=== PATIENT | male | born 1960 | race Caucasian/White ===

== ENCOUNTER 2020-09-16 05:56 | Day surgery (SDC) | payer OTHER ==
[~2020-09-16] VITALS: Ht 188 cm; Wt 163.0 kg
== END 2020-09-17 10:15 | disposition home or self-care (01) ==
LOC: ORSCMMR 05:56 → SURS 05:56 → ORSCMMR 05:57 → ORD 07:30 → SURS 11:10 → ORSCMMR 09-17 10:15
PROC: 0SRD0J9 Replacement of Left Knee Joint with Synthetic Substitute, Cemented, Open Approach (ICD-10-PCS; principal; 2020-09-16)
PROC: 8E0YXBZ Computer Assisted Procedure of Lower Extremity (ICD-10-PCS; principal; 2020-09-16)
DX: M17.12 Unilateral primary osteoarthritis, left knee (principal); I10 Essential (primary) hypertension; I48.91 Unspecified atrial fibrillation; Z87.891 Personal history of nicotine dependence; N18.9 Chronic kidney disease, unspecified; K21.9 Gastro-esophageal reflux disease without esophagitis; E66.01 Morbid (severe) obesity due to excess calories; Z68.42 Body mass index [BMI] 45.0-49.9, adult; Z79.82 Long term (current) use of aspirin
CPT/HCPCS: 36415; 73560-LT; 80048; 82947; 83036; 83735; 85025; 97110; 97110-CQ; 97116; 97116-CQ; 97162; 97530; 97530-CQ; A9270; C1713; C1776; J0171; J0690; J0735; J1100; J1170; J1650; J1885; J2250; J2370; J2405; J2704; J2795; J3010; J7120

== ENCOUNTER 2022-06-19 07:53 | Inpatient (IN) | payer OTHER ==
[~2022-06-19] VITALS: Ht 188 cm; Wt 139.0 kg
[~2022-06-19 07:53] MED LIST: ASPI325 PO; ASPIR 8181 M1 PO; CYCL10 PO; ENOX40I SC; HYDACE10B PO; IBUP800 PO; LOSA50 PO; NAPR500 PO; POTCHL20ER PO; PROMETHAZINE12.5 M1 PO; ROXICODONE5 MG PO; Robaxin500 MG PO; TADA10TA PO; TORSE20 PO; Ultram50 MG PO
[2022-06-19 08:26] LABS: BASOPHILS ABSOLUTE AUTO 0.04 K/mm3 (0.00-0.23); BASOPHILS PERCENT AUTO 1 % (0-2); EOSINOPHILS ABSOLUTE AUTO 0.06 K/mm3 (0.00-0.68); EOSINOPHILS PERCENT AUTO 1 % (0-6); Hematocrit 48.6 % (37.0-53.0); Hemoglobin 16.6 g/dL (13.5-17.5); IMMATURE GRAN ABSOLUTE AUTO 0.02 K/mm3 (0.00-0.10); IMMATURE GRAN PERCENT AUTO 0 % (0-1); LYMPHOCYTES ABSOLUTE AUTO 0.92 K/mm3 (0.84-5.20); LYMPHOCYTES PERCENT AUTO 11 % (21-46); MONOCYTES ABSOLUTE AUTO 0.61 K/mm3 (0.16-1.47); MONOCYTES PERCENT AUTO 8 % (4-13); Mean Corpuscular HGB Conc 34.2 g/dL (31.5-36.5); Mean Corpuscular Volume 91 fL (80-100); Mean Platelet Volume 9.7 fL (9.1-12.4); NEUTROPHILS ABSOLUTE AUTO 6.42 K/mm3 (1.96-9.15); NEUTROPHILS PERCENT AUTO 80 % (41-73); Platelet Count 195 K/mm3 (150-400); RDW Standard Deviation 43.7 fL (35.1-46.3); Red Blood Cell Count 5.36 M/mm3 (4.30-5.90); White Blood Cell Count 8.07 K/mm3 (4.00-11.30)
[2022-06-19 08:48] LABS: Albumin, Blood 3.8 g/dL (3.4-5.0); Bun/Creatinine Ratio 25.2 (12.0-20.0); Calcium, Blood 9.1 mg/dL (8.5-10.1); Creatinine, Blood 1.43 mg/dL (0.60-1.20); Globulin, Blood 3.9 g/dL (2.2-4.0); Potassium, Blood 3.6 mmol/L (3.5-5.5); Total Protein, Blood 7.7 g/dL (6.4-8.2)
[2022-06-19 11:41] LABS: Influenza A, PCR NEGATIVE (NEGATIVE); Influenza B, PCR NEGATIVE (NEGATIVE); Resp Syncytial Virus, PCR NEGATIVE (NEGATIVE); SARS-Cov-2 (COVID-19) PCR, MMC NEGATIVE (NEGATIVE)
[2022-06-19 12:16] LABS: Anti-Xa UFH, PHA Monitoring <0.10 IU/mL; International Normalized Ratio 1.14; Prothrombin Time Results 11.9 Sec (9.7-11.5)
[2022-06-19 13:17] LABS: CHOL/HDL RATIO 4.2; Cholesterol 247 mg/dL (50-200); HDL Cholesterol 59 mg/dL (>39); LDL/HDL RATIO 2.9; Low Density Lipoprotein Chol 172 mg/dL (0-110); Triglycerides 81 mg/dL (30-160); Very Low Density Lipoprot Chol 16 mg/dL (6-32)
--- NOTE | 2022-06-19 18:24 | NUR ---
END OF SHIFT: NO CHANGE FROM ADMISSION ASSESSMENT PLEASE SEE.
--- NOTE | 2022-06-19 21:20 | NUR ---
UPDATE PER PHARMACY, HEPARIN GTT STOPPED AT 2120, WILL RESUME IN 1 HOUR AT ADJUSTED RATE.
--- NOTE | 2022-06-19 22:28 | NUR ---
HEPARIN GTT HEPARIN RESUMED AT 2220 AT 15U/KG/HR OR PUMP RATE OF 31.5 ML/HR
[2022-06-20 05:14] LABS: BASOPHILS ABSOLUTE AUTO 0.02 K/mm3 (0.00-0.23); BASOPHILS PERCENT AUTO 0 % (0-2); EOSINOPHILS PERCENT AUTO 0 % (0-6); Hematocrit 48.6 % (37.0-53.0); Hemoglobin 16.2 g/dL (13.5-17.5); IMMATURE GRAN ABSOLUTE AUTO 0.03 K/mm3 (0.00-0.10); IMMATURE GRAN PERCENT AUTO 0 % (0-1); LYMPHOCYTES ABSOLUTE AUTO 0.89 K/mm3 (0.84-5.20); LYMPHOCYTES PERCENT AUTO 10 % (21-46); MONOCYTES ABSOLUTE AUTO 0.84 K/mm3 (0.16-1.47); MONOCYTES PERCENT AUTO 9 % (4-13); Mean Corpuscular HGB 30.8 pg (26.0-34.0); Mean Corpuscular HGB Conc 33.3 g/dL (31.5-36.5); Mean Corpuscular Volume 92 fL (80-100); Mean Platelet Volume 10.1 fL (9.1-12.4); NEUTROPHILS ABSOLUTE AUTO 7.14 K/mm3 (1.96-9.15); NEUTROPHILS PERCENT AUTO 80 % (41-73); Platelet Count 194 K/mm3 (150-400); RDW Coefficient Variation 13.2 % (11.7-14.2); RDW Standard Deviation 45.2 fL (35.1-46.3); Red Blood Cell Count 5.26 M/mm3 (4.30-5.90); White Blood Cell Count 8.92 K/mm3 (4.00-11.30)
--- NOTE | 2022-06-20 05:48 | NUR ---
SHIFT SUMMARY A/OX4, L. SIDED DEFECITS. SLURRED SPEECH WITH DYSPAGHIA, L. FACICAL DROOP. C/O GENERALIZED PAIN, MEDICATED PER EMAR. TELE SR 60S-80S. DENIES CHEST PAIN/PRESSURE. APNEIC PERIODS NOTED, SPO2 >92% ON 2L VIA NC. HEPARIN GTT CURRENTLY RUNNING AT 14U/KG/HR. SIGNIFICANT OTHER AT BEDSIDE. NO ACUTE CHANGES AT THIS TIME. BED IN LOWEST POSITION WITH CALL LIGHT IN REACH. WILL CONTINUE TO MONITOR AND REPORT TO ONCOMING RN.
[2022-06-20 07:11] LABS: Bun/Creatinine Ratio 31.8 (12.0-20.0); Creatinine, Blood 1.1 mg/dL (0.60-1.20); Potassium, Blood 4.2 mmol/L (3.5-5.5)
--- NOTE | 2022-06-20 17:48 | NUR ---
SHIFT SUMMARY PT A&OX4. MILD LEFT SIDE DEFICITS NOTED BLE. SP02>90% ON RA WHILE AWAKE. WHILE SLEEPING OR LAYING BACK, 2-3L NC NEEDED TO MAINTAIN >90%. USED URINAL TO VOID. SPEECH THERAPY ASSESSING PT THIS SHIFT, CLEARED FOR REGULAR DIET. PT C/O OF L ARM PAIN. CALL PLACED TO MD MARROQUIN FOR ORDER OF HOME NORCO, DC'D IV PAIN MEDICATION. MEDICATED FOR PAIN X1. ECHO IN ROOM THIS AM, SEE RESULTS. PT TO MRI THIS SHIFT, MD MARROQUIN IN ROOM TO DISCUSS RESULTS WITH PT AND PT'S FAMILY. PT ABLE TO WORK W/ PT/OT THIS SHIFT, 2 PERSON W/ [facility]WW TO [facility] HEPARIN GTT INFUSING PER EMAR. PT SITTING ON SIDE OF BED CURRENTLY W/ FAMILY IN ROOM. CALL LIGHT IN REACH.
--- NOTE | 2022-06-21 05:32 | NUR ---
SHIFT SUMMARY A/OX4, 2P MAX ASSIST FOR TRANSFERS. C/O GENERALIZED PAIN, MEDICATED PER EMAR. TELE SR IN THE 80S. VSS, NO ACUTE CHANGES AT THIS TIME. BED IN LOWEST POSITION WITH CALL LIGHT IN REACH. WILL CONTINUE TO MONITOR AND REPORT TO ONCOMING RN.
--- NOTE | 2022-06-21 07:22 | NUR ---
ASSUMED CARE OF PT- BEDSIDE REPORT COMPLETED WITH NIGHT RN, NO S&S OF DISTRESS NOTED, TANGLED LINES AND TUBES UNTANGLED. ASSESSMENT COMPLETED. PT WOKE TO VOICES AND ANSWERED QUESTIONS, THOUGH GROGGY, PT WAS ABLE TO FOLLOW INSTRUCTIONS, GRAINER MACHINE EQUAL, LEFT LEG SEEMS WEAK. ON TELE NSR IN THE 60'S. FAMILY AT THE BEDSIDE, PLAN FOR HH DISCHARGE, FAMILY HAS QUESTIONS ABOUT THE DISCHARGE PLAN WHEN THE DR ROUNDS.
--- NOTE | 2022-06-21 09:17 | NUR ---
NOTED PT HR TRENDING LOWER THAN PREVIOUS. SPOKE TO CLINICAL ADMISSIONS MANAGER HR TRENDING 50'S TO HIGH 40'S. PER CLINICAL ADMISSIONS MANAGER PT HAS A FIRST DEGREE AV BLOCK THAT STARTED EARLY THIS AM. WILL CALL DR MARROQUIN TO UPDATE.
--- NOTE | 2022-06-21 09:21 | NUR ---
CALLED DR MARROQUIN- PT ASYMPTOMATIC WITH THE [facility]. AWARE NO NEW ORDERS AT THIS TIME.
--- NOTE | 2022-06-21 09:52 | NUR ---
DR MARROQUIN AT THE BEDSIDE- SPOKE TO PT ABOUT READINESS TO DISCHARGE. PT STATES HE IS NOT YET READY TO DISCHARGE. WHEN ASKED WHY THE PT STATED BECAUSE HE IS "INSIDE HIS OWN HEAD AND IT IS F*&@#D UP IN HERE." PT C/O DIZZINESS AND DR MARROQUIN GAVE A VERBAL ORDER FOR MECLIZINE ONE TIME PO.
--- NOTE | 2022-06-21 17:16 | NUR ---
SHIFT SUMMARY- PT ALERT AND ORIENTED, 1P SBA TO THE BATHROOM. FAMILY HAS BEEN AT THE BEDSIDE SINCE THE START OF THE SHIFT. PT IS AGREEABLE WITH CARE. PLAN WAS FOR PT TO DISCHARGE HOME WITH HOME HEALTH. PT FAMILY CONVEYED THAT THEY WERE NOT COMFORTABLE TAKING THE PT HOME TONIGHT. THE PT AND FAMILY PLAN TO LEAVE TOMORROW MORNING FROM THE HOSPITAL TO GO TO [facility] IN [place] FOR A SECOND OPINION. WROTE DISCHARGE ORDERS FOR TONIGHT, PLAN WAS FOR TOMORROW MORNING, PER THE FAMILY REQUEST THE DR WAS CALLED TO GET DISCHARGE MEDS FAXED TO THE PT PHARMACY. ACADEMIC ADVISER ATTEMPTING TO REACH CARE MANAGEMENT AT THIS TIME. WILL CTM AT THIS TIME.
--- NOTE | 2022-06-21 18:08 | NUR ---
Pt and family fearful because of continued symptoms and prognosis. Lack understanding of needed interventions. Review with family pt need to be on blood thinners and review of diagnositics. Family fears taking him home. Some potential concerns of possible substance abuse. Ricky notified family would like to fill his new script tonight. After discussion they plan to take him tomorrow to [facility] for further care. updated shareg nurse of their concerns and physician. Plan is am discharge.
[2022-06-21] MEDS ORDERED: ASPI81CH PO (18:16)
[2022-06-21] MEDS ORDERED: METF500C PO (18:17)
[2022-06-21] MEDS ORDERED: ATOR80 PO (18:17)
[2022-06-21] MEDS ORDERED: MOTION RELIEF25 MG PO (18:18)
[2022-06-21] MEDS ORDERED: LISI5 PO (18:18)
[2022-06-21] MEDS ORDERED: XARELTO20 MG PO (18:19)
--- NOTE | 2022-06-21 19:05 | NUR ---
DISCHARGE NOTE- PT AND FAMILY WERE GIVEN VERBAL AND WRITTEN DISCHARGE INSTRUCTIONS AND ACKNOWLEDGED UNDERSTANDING OF THEM. IV AND TELE DC'D. PT PHARMACY HAD CLOSED AT THE TIME OF DISCHARGE SO MEDS W[facility] TO [facility] [place] PER FAMILY REQUEST. SPOKE TO STAFF AT THE PHARMACY THEY HAVE ALL THE MEDS THE PT NEEDS FILLED AND WILL FILL THEM THIS EVENING PRIOR TO CLOSE. FAMILY IS AWARE OF THE CLOSING TIME FOR THIS PHARMACY. PT IS GOING TO BE ESCORTED OUT VIA WC. NO CURRENT S&S OF DISTRESS.
== END 2022-06-21 19:10 | disposition home or self-care (01) | DRG 65 ==
LOC: ER 07:53 → PCU 12:50
PROVIDERS: Emergency Medicine; ADMIT Internal Medicine
DX: I63.9 Cerebral infarction, unspecified (principal); G81.94 Hemiplegia, unspecified affecting left nondominant side; Z68.41 Body mass index [BMI] 40.0-44.9, adult; R29.702 NIHSS score 2; I10 Essential (primary) hypertension; Z20.822 Contact with and (suspected) exposure to COVID-19; I48.91 Unspecified atrial fibrillation; E11.9 Type 2 diabetes mellitus without complications; R29.810 Facial weakness; R47.81 Slurred speech; M19.90 Unspecified osteoarthritis, unspecified site; E66.01 Morbid (severe) obesity due to excess calories; R09.02 Hypoxemia; I65.22 Occlusion and stenosis of left carotid artery; Z96.652 Presence of left artificial knee joint; Z87.891 Personal history of nicotine dependence; Z98.890 Other specified postprocedural states; Z72.89 Other problems related to lifestyle; Z28.21 Immunization not carried out because of patient refusal; Z79.82 Long term (current) use of aspirin; Z79.899 Other long term (current) drug therapy
CPT/HCPCS: 0241U; 36415; 70450; 70496; 70498; 70551; 71045; 80048; 80053; 80061; 82947; 85025; 85520; 85610; 85730; 92610; 93005; 93010; 93306; 96365-59; 96375-59; 96376-59; 97110; 97112; 97116; 97162; 97166; 97535; 99285-25; A9270; J1644; J2270; J2405; J7030; Q9967

== ENCOUNTER 2022-06-25 23:31 | Inpatient (IN) | payer OTHER ==
[~2022-06-25] VITALS: Ht 188 cm; Wt 149.2 kg
[~2022-06-25 23:31] MED LIST changes: +ASPI81CH PO; +ATOR80 PO; +LISI5 PO; +METF500C PO; +MOTION RELIEF25 MG PO; +XARELTO20 MG PO
[2022-06-25 23:46] LABS: BASOPHILS ABSOLUTE AUTO 0.07 K/mm3 (0.00-0.23); BASOPHILS PERCENT AUTO 1 % (0-2); EOSINOPHILS ABSOLUTE AUTO 0.62 K/mm3 (0.00-0.68); EOSINOPHILS PERCENT AUTO 6 % (0-6); Hematocrit 47.9 % (37.0-53.0); Hemoglobin 16.3 g/dL (13.5-17.5); IMMATURE GRAN ABSOLUTE AUTO 0.04 K/mm3 (0.00-0.10); IMMATURE GRAN PERCENT AUTO 0 % (0-1); LYMPHOCYTES ABSOLUTE AUTO 3.51 K/mm3 (0.84-5.20); LYMPHOCYTES PERCENT AUTO 36 % (21-46); MONOCYTES ABSOLUTE AUTO 1.35 K/mm3 (0.16-1.47); MONOCYTES PERCENT AUTO 14 % (4-13); Mean Corpuscular HGB 30.8 pg (26.0-34.0); Mean Corpuscular Volume 90 fL (80-100); Mean Platelet Volume 9.8 fL (9.1-12.4); NEUTROPHILS ABSOLUTE AUTO 4.08 K/mm3 (1.96-9.15); NEUTROPHILS PERCENT AUTO 42 % (41-73); Platelet Count 236 K/mm3 (150-400); RDW Coefficient Variation 12.8 % (11.7-14.2); RDW Standard Deviation 42.4 fL (35.1-46.3); White Blood Cell Count 9.67 K/mm3 (4.00-11.30)
[2022-06-26] MEDS ORDERED: Hydroxyzine HCl50 MG (00:03)
[2022-06-26] MEDS ORDERED: POTA20PAC (00:03)
[2022-06-26] MEDS ORDERED: TORSE20 PO (00:03)
[2022-06-26 00:04] LABS: Albumin, Blood 3.5 g/dL (3.4-5.0); Albumin/Globulin Ratio 0.9 (0.8-1.8); Bilirubin, Total 0.3 mg/dL (0.1-1.0); Bun/Creatinine Ratio 22.3 (12.0-20.0); Calcium, Blood 9.4 mg/dL (8.5-10.1); Creatinine, Blood 1.21 mg/dL (0.60-1.20); Globulin, Blood 4.1 g/dL (2.2-4.0); Potassium, Blood 3.9 mmol/L (3.5-5.5); Total Protein, Blood 7.6 g/dL (6.4-8.2)
[2022-06-26] MEDS ORDERED: XARELTO20 MG PO (00:04)
[2022-06-26 02:28] LABS: Magnesium, Blood 2.1 mg/dL (1.6-2.4); Phosphorus, Blood 3.6 mg/dL (2.5-4.9); Thyroid Stimulating Hormone 3.25 uIU/mL (0.360-4.800)
[2022-06-26 04:45] LABS: BASOPHILS ABSOLUTE AUTO 0.05 K/mm3 (0.00-0.23); BASOPHILS PERCENT AUTO 1 % (0-2); EOSINOPHILS ABSOLUTE AUTO 0.05 K/mm3 (0.00-0.68); EOSINOPHILS PERCENT AUTO 1 % (0-6); Hematocrit 46.3 % (37.0-53.0); Hemoglobin 15.7 g/dL (13.5-17.5); IMMATURE GRAN ABSOLUTE AUTO 0.02 K/mm3 (0.00-0.10); IMMATURE GRAN PERCENT AUTO 0 % (0-1); LYMPHOCYTES ABSOLUTE AUTO 0.85 K/mm3 (0.84-5.20); LYMPHOCYTES PERCENT AUTO 11 % (21-46); MONOCYTES ABSOLUTE AUTO 0.43 K/mm3 (0.16-1.47); MONOCYTES PERCENT AUTO 5 % (4-13); Mean Corpuscular HGB 30.8 pg (26.0-34.0); Mean Corpuscular HGB Conc 33.9 g/dL (31.5-36.5); Mean Corpuscular Volume 91 fL (80-100); Mean Platelet Volume 10.3 fL (9.1-12.4); NEUTROPHILS ABSOLUTE AUTO 6.65 K/mm3 (1.96-9.15); NEUTROPHILS PERCENT AUTO 83 % (41-73); Platelet Count 220 K/mm3 (150-400); RDW Coefficient Variation 12.8 % (11.7-14.2); RDW Standard Deviation 42.5 fL (35.1-46.3); Red Blood Cell Count 5.09 M/mm3 (4.30-5.90); White Blood Cell Count 8.05 K/mm3 (4.00-11.30)
--- NOTE | 2022-06-26 04:57 | NUR ---
ADMISSION/SHIFT SUMMARY PT ARRIVED TO PCU 17 AT 0330. SLID OVER [facility]. PT ALERT AND ORIENTED X4 ON ARRIVAL, ABLE TO TELL THIS RN NAME, , LOCATION, AND WHY ADMISSION WAS WARRANTED. L SIDED DEFECIT NOTED, SPOUSE AT BEDSIDE TOLD THIS RN PT LOST FULL MOVEMENT ON L. SIDE EXTREMENTIES APPROX 2300 06/25/22 AND SLOWLY HAS REGAINED IT BACK. NO FACIAL DROOPED OBSERVED. SMILE EQUAL BILATERALLY. PEERLA. PT COMPLAINING OF 10/10 HEADACHE IN ER, MEDICATED PER EMAR BEFORE ARRIVAL TO UNIT. BP STABLE, HR SR 60'S, AFEBRILE, CURRENTLY ON RA SATURATIONS >96%. RESPIRATIONS EVEN AND UNLABORED AT REST. PT WEARS CPAP AT [facility], RT MADE AWARE. PULSES EQUAL BILATERALLY, +1 EDEMA NOTED IN BLE. PT AND SPOUSE STATES THIS IS AN IMPROVEMENT SINCE YESTERDAY. CONT OF BOTH URINE AND BOWEL, PT IRRIATED ON WHY AMBULATION WAS NOT APPROPRIATE AT THIS TIME, EDUCATION PROVIDED AND SAFETY MEASURES IN PLACE. SPOUSE AND DAUGHTER AT BEDSIDE, MADE AWARE OF VISITING HOURS STARTING THIS EVENING. PLAN FOR MRI IN AM. BED IN LOW, CALL LIGHT IN REACH, WILL REPORT TO ONCOMING RN.
[2022-06-26 05:09] LABS: Albumin, Blood 3.2 g/dL (3.4-5.0); Albumin/Globulin Ratio 0.8 (0.8-1.8); Bilirubin, Total 0.4 mg/dL (0.1-1.0); Calcium, Blood 8.7 mg/dL (8.5-10.1); Creatinine, Blood 1.04 mg/dL (0.60-1.20); Globulin, Blood 3.8 g/dL (2.2-4.0); Potassium, Blood 4.5 mmol/L (3.5-5.5)
[2022-06-26] MEDS ORDERED: Norco 10-325 T1 EACH PO (10:59)
--- NOTE | 2022-06-26 17:16 | NUR ---
SHIFT SUMMARY PT REMAINS ALERT AND ORIENTED, BUT CONFUSED UPON WAKING AT TIMES. PT LETHARGIC MOST OF SHIFT, BUT AWAKENS TO VERBAL STIMULI. HR SB IN THE 50'S. BP ELEVATED, BUT STABLE. PT COMPLAINS OF HEADACHE AND BACK PAIN ON AND OFF THIS SHIFT AND MEDICATED PER EMAR. PT MOVING HIMSELF AROUND IN THE BED FREQUENTLY. LEFT SIDE IS WEAKER THAN RIGHT, BUT PT ABLE TO FOLLOW COMMANDS WITH LEFT SIDE. PT VOIDING USING THE URINAL AT BEDSIDE. MULTIPLE FAMILY MEMBERS AT BEDSIDE ALL SHIFT. WILL CONTINUE TO MONITOR AND REPORT TO ONCOMING RN
--- NOTE | 2022-06-26 20:14 | NUR ---
UPDATE TO HOSPITALIST THIS RN SPEAKS TO HOSPITALIST AKASH ESTRADA TIBCO DEVELOPER AT NURSE'S STATION REGARDING PT TX PLAN FOR JULIA IN AM AND CONCERNS FOR BP AND PAIN. ORDERS GIVEN FOR BP AND PAIN PRN. NIHSS SCORE BY THIS RN CURRENTLY 9 D/T FOLLOWING SCORED BY THIS RN: 1a: +1 1B: 0 1c: 0 2: 0 3: +1 (INCORRECTLY STATES NUMBER OF FINGERS HELD UP TO L EYE) 4: 0 5A: +2 5b: 0 6A: +1 6B: 0 7: 0 8: +1 9: +1 10: +1 11: +1 TOTAL NIHSS: 9 BY THIS RN AT THIS TIME. PT IS ALSO C/O SEVERE HEADACHE, EYES SENSITIVE TO LIGHT, APPEARS DROWSY BUT ARROUSES TO QUESTIONS EASILY. PT STATES YEAR IS 2003 AND DOES NOT KNOW WHO THE PRESIDENT IS. KNOWS HIS NAME, AGE. PT'S SIGNIFICANT OTHER RYANNE AT BEDSIDE WITH PT'S DAUGHTER TABBY AND SON JULIANA.
--- NOTE | 2022-06-27 01:31 | NUR ---
UPDATE PT BEGAN VOMITTING, ORDERS FROM PHYSICIAN FOR ZOFRAN Q4 NEEDED.
[2022-06-27 06:47] LABS: Albumin, Blood 3.3 g/dL (3.4-5.0); Anion Gap 6 mmol/L (6-16); Blood Urea Nitrogen 19 mg/dL (8-24); Bun/Creatinine Ratio 22.1 (12.0-20.0); CO2, Blood 25 mmol/L (21-32); Calcium, Blood 9.2 mg/dL (8.5-10.1); Chloride, Blood 105 mmol/L (98-108); Creatinine, Blood 0.86 mg/dL (0.60-1.20); Glomerular Filtration Rate 97 (60-); Glucose, Blood 122 mg/dL (70-99); Phosphorus, Blood 3.5 mg/dL (2.5-4.9); Potassium, Blood 4.3 mmol/L (3.5-5.5); Sodium, Blood 136 mmol/L (136-145)
--- NOTE | 2022-06-27 07:30 | NUR ---
ASSUMED CARE: PT RESTING ON RIGHT SIDE AT THIS TIME. FAMILY AT BEDSIDE. NSR WITH A BBB ON TELE IN THE 60S. NIGHT RN REPORTS LEFT SIDED WEAKNESS. NO ACUTE NEEDS OR DISTRESS AT THIS TIME.
--- NOTE | 2022-06-27 07:37 | NUR ---
SHIFT SUMMARY PT AOX3 AT START OF SHIFT, LETHARGIC AND FREQUENTLY DROWSY BUT C/O SEVERE HEADACHE WHICH IMPROVED FOLLOWING IV MORPHINE AND NORCO PO. PT SATS DROPPED FOLLOWING IV MORPHINE, PT TRIED CPAP AND THEN REFUSED SHORTLY AFTER. NO FURTHER ISSUES WITH O2 SATS. PT FREQUENTLY REPOSITIONED SELF IN BED. S/O ASSISTED TO USE URINAL IN BED. NEUR0 CHANGE NOTED EARLY THIS AM WHEN PT WAS CONFUSED REGARDING HIS AGE AND INCREASINGLY AGITATED. EPISODE FOLLOWED EPISODE OF EMESIS THAT OCCURRED W/O WARNING WHEN THIS RN WAS ASSISTING PT TO URINATE. PT MEDICATED WITH ZOFRAN ON OVERRIDE, DR RODRIGUEZ NOTIFIED AND ORDERS PLACED FOR NAUSEA MED PRN. PT DENIED ANY CP T/O SHIFT, MOVED ALL FOUR EXTREMITIES, SIGNIFICANT WEAKNESS IN L ARM W/PRESENT DRIFT, WHEN ASKED TO SQUEEZE THIS RN'S HAND THIS AM W/AGITATION PT SQUEEZED TIGHT AND WOULD NOT LET GO UNTIL THIS RN TOLD HIM SEVERAL TIMES THAT HE WAS SQUEEZING TOO HARD. PT HAD BEEN AGITATED W/STAFF AND USING PROFANITIES. PT CALMED AFTER BEING LEFT TO REST AND SLEEP. PT DROWSY AND DID NOT AWAKEN MUCH WITH BLOOD DRAW THIS AM, STILL AWAKENING TO ANSWER QUESTIONS, FOLLOWS COMMANDS. IV'S SALINE LOCKED. CONCERN FOR NEED FOR POWERGLIDE INSERTION PASSED ON IN REPORT TO ONCOMING RN D/T DIFFICULTY W/BLOOD DRAW THIS AM.
--- NOTE | 2022-06-27 08:14 | NUR ---
DR SU CAME TO BEDSIDE AND CONSENTED PT FOR JULIA. STATED ANESTHESIA WILL BE NEEDED SO PT WILL BE TAKEN TO WAREHOUSEMAN FOR PROCEDURE. FAMILY AT BEDSIDE AND AWARE
--- NOTE | 2022-06-27 08:42 | NUR ---
THIS MIXING PLANT DUMPER CAME ON SHIFT AT 0700 UNDER THE SUPERVISION OF NURSE NESS. REPORT OBTAINED FROM PM SHIFT. ORACLE SQL DEVELOPER AT BEDSIDE AROUND 0800 TO EXPLAIN JULIA PROCEDURE TO PT AND S/O. PT VERBALIZED UNDERSTANDING AND CONSENT. S/O SIGNED CONSENT FORM, NURSE NESS OBSERVED, ORACLE SQL DEVELOPER SIGNED CONSENT FORM. PT TOLERATED PHYSICAL ASSESSMENT. NOTED DEFICITS TO LEFT SIDE INCLUDING FACIAL DROOP AND DEFICITS IN UPPER AND LOWER LEFT LIMBS. PT DENIED PRESENCE OF PAIN AT 0820. PT WAITING FOR TRANFER TO [facility] FOR JULIA.
--- NOTE | 2022-06-27 09:21 | NUR ---
THIS STUDENT NURSE ADMINISTERED XARELTO AND LISINOPRIL TO PT PO AT 0915 UNDER THE SUPERVISION OF NURSE NESS, PT TOLERATED INTERVENTION. PT COMLAINS OF 10/10 HEADACHE PAIN, RECEIVED 4MG OF MORPHINE IV BY NURSE NESS. R FOREARM IV REMOVED BY THIS STUDENT NURSE UNDER THE SUPERVISION OF NURSE NESS. COBAN AND GAUZE APPLIED OVER SITE, PT TOLERATED INTERVENTION WELL.
--- NOTE | 2022-06-27 14:19 | NUR ---
[facility] STAFF CALLS AND REPORTS THAT JULIA TO BE DONE AT BEDSIDE WITH ANESTHESIA ASSISTING AT 3PM. FAMILY AWARE. NO FURTHER NEEDS AT THIS TIME.
--- NOTE | 2022-06-27 15:54 | NUR ---
JULIA COMPLETED BY DR SU WITH ANESTHESIA ASSISTING. DR SU REPORTS NO BLOOD CLOT FOUND DURING EXAM. CALL TO DR MONROE TO UPDATE AND ASKED IF CAROTID DOPPLER MAY BE NEEDED. STATES SHE IS REVIEWING HIS CHART AND WILL CALL NEUROLOGY FOR FURTHER RECOMMENDATIONS.
--- NOTE | 2022-06-27 17:07 | NUR ---
THIS STUDENT NURSE OBSERVED DR SU PERFORM THE JULIA WITH THE HELP OF CAMILO. NO ABNORMALITIES REPORTED, PT TOLERATED PROCEDURE WELL. PT FAMILY BACK AT BEDSIDE, PT RESTING COMFORTABLY. PT IS AROUSABLE WITH VERBAL STIMULATION.
--- NOTE | 2022-06-27 18:05 | NUR ---
SHIFT SUMMARY: DR MONROE CAME TO BEDSIDE AND EXPLAINED NEURO RECOMMENDATIONS TO PATIENT AND FAMILY. PLAN IS TO START HEPARIN TOMORROW AM DUE TO XARELTO BEING ADMINISTERED THIS AM. NEURO STATED THAT CAROTID DOPPLERS NOT NEEDED BECAUSE TREATMENT WOULD BE THE SAME. DR AWARE THAT PT HAS HAD HEADACHES SINCE YESTERDAY. DR ORDERED CT TO R/O BLEED. DR ALSO AWARE THAT THERE HAVE BEEN NEURO CHANGES THIS SHIFT. PT LETHARGIC AT TIMES BUT ROUSEABLE AND WAKES TO ANSWER QUESTIONS. DR INSTRUCTS TO HOLD FOOD UNTIL SPEECH CAN EVALUATE. MEDS WITH SIPS IS OK. FAMILY AT BEDSIDE. NO FURTHER NEEDS AT THIS TIME.
[2022-06-27 18:45] LABS: International Normalized Ratio 1.17; Prothrombin Time Results 12.2 Sec (9.7-11.5)
--- NOTE | 2022-06-27 20:21 | NUR ---
PT UPDATE THIS RN TAKES PT TO CT SHORTLY AFTER SHIFT CHANGE AROUND 1939. ON COMPLETION OF CT SCAN HOB ADJUSTED TO 30 DEGREES. THIS RN NOTIFIES RESIDENT DR DEAN OF NEED TO VIEW IMAGES, CONTACTED LOUNGE CAR ATTENDANT TO CONFIRM RADIOLOGIST READING REPORT BEFORE CUT-OFF. THIS RN RECEIVES CALL FROM DR ROLLE, NOTIFIES OF CHANGES AND REPORTS AT [facility] AT [facility] AND [facility]POR[facility] THERE IS A NEW BLEED. NOTES HERNIATION AT [facility]. RECCOMENDS TRANSFER FOR FINDINGS. THIS RN NOTIFIES RESIDENT DR DEAN WHO IS ON THE UNIT. NO SIGNIFICANT NEURO CHANGES NOTED AT THIS TIME OTHER THAN CONTINUED SOMNOLENCE, PT DENIES HEADACHE AT THIS TIME. L SIDE FRIFT IN L ARM. NIHSS IS FOLLOWS. NIHSS SCORE BY THIS RN: 1A: +2 1B: +1 1C: 0 2: 0 3: 0 4: 0 5A: 2 5B: 0 6A: 1 6B: 0 7: 0 8: 1 9: 1 10: 1 11: 1 NIHSS SCORE BY THIS RN 10
[2022-06-27 22:47] LABS: Bun/Creatinine Ratio 19.5 (12.0-20.0); Calcium, Blood 9.1 mg/dL (8.5-10.1); Creatinine, Blood 0.92 mg/dL (0.60-1.20); Potassium, Blood 4.2 mmol/L (3.5-5.5)
--- NOTE | 2022-06-27 23:15 | NUR ---
REPORT TO MADDY MORIN AT [facility] NEURO UNIT.
--- NOTE | 2022-06-28 00:50 | NUR ---
SUMMARY PT SOMNOLENT AT START OF SHIFT, AWAKENS TO ANSWER QUESTIONS WHEN NAME IS SPOKEN REPEATEDLY AND GENTLE TOUCH TO SHOULDER OR CHEST. S/O AT BEDSIDE. PT TAKEN TO CT SHORTLY AFTER SHIFT CHANGE. HOB KEPT AT [address] SCAN[address] RADIOLOGIST CALLED TO NOTIFY OF CONCERNING NEW FINDINGS (SEE NOTE). S/O CALLS CHILDREN OF PT TO BEDSIDE. FAMILY NOTIFIED BY PROVIDER OF FINDINGS AND PLAN FOR TRANSFER. PARAMETERS GIVEN TO KEEP BP LOWER THAN 140/90. DIFFICULTY WITH LABILE BP NOT RESPONDING FOR LONG TO HYDRALAZINE PUSHES. PAIN MEDICINES GIVEN TO HELP WITH INCREASINGLY SEVERE HEADACHE WHICH WAS SUSPECT FOR RAISING PT'S BP. THIS RN NOTED A CHANGE OF 1 POINT ON NIHSS FROM PRIOR SHIFT. PT CONTINUED TO HAVE L SIDE DEFICITS W/NO OBVIOUS WORSENING FROM PRIOR. PT CONTINUED TO BE SOMNOLENT BUT RESPONSIVE. [facility] ADMINISTRATION DELAYED BY BLOOD BANK D/T CONCERNS REGARDING HOW TO DOCUMENT THE ADMINISTRATION D/T INFUSING ON TRANSFER. [facility] NOT GIVEN D/T CONCERN FOR DELAY IN TRANSFER FOLLOWING AFTER REPEAT CT WAS PERFORMED W/MEDIC UNIT AT BEDSIDE READY TO TRANSPORT. THIS RN CALLED AND NOTIFIED [facility] NOT RECEIVING [facility] HERE AT [facility].
== END 2022-06-28 00:50 | disposition short-term general hospital (02) | DRG 64 ==
LOC: ER 23:31 → PCU 23:32
PROVIDERS: Emergency Medicine; Family Medicine; Internal Medicine; ADMIT Internal Medicine
PROC: 5A09357 Assistance with Respiratory Ventilation, Less than 24 Consecutive Hours, Continuous Positive Airway Pressure (ICD-10-PCS; 2022-06-26)
PROC: B24BZZ4 Ultrasonography of Heart with Aorta, Transesophageal (ICD-10-PCS; principal; 2022-06-27)
DX: I63.531 Cerebral infarction due to unspecified occlusion or stenosis of right posterior cerebral artery (principal); G92.9 Unspecified toxic encephalopathy; I74.2 Embolism and thrombosis of arteries of the upper extremities; Z68.41 Body mass index [BMI] 40.0-44.9, adult; N17.9 Acute kidney failure, unspecified; I10 Essential (primary) hypertension; E78.5 Hyperlipidemia, unspecified; E66.01 Morbid (severe) obesity due to excess calories; G83.24 Monoplegia of upper limb affecting left nondominant side; G83.14 Monoplegia of lower limb affecting left nondominant side; I48.0 Paroxysmal atrial fibrillation; M19.90 Unspecified osteoarthritis, unspecified site; H81.4 Vertigo of central origin; R47.81 Slurred speech; I63.543 Cerebral infarction due to unspecified occlusion or stenosis of bilateral cerebellar arteries; R29.810 Facial weakness; I70.8 Atherosclerosis of other arteries; I65.02 Occlusion and stenosis of left vertebral artery; E11.65 Type 2 diabetes mellitus with hyperglycemia; G47.33 Obstructive sleep apnea (adult) (pediatric); R53.81 Other malaise; F10.10 Alcohol abuse, uncomplicated; R29.704 NIHSS score 4; Z96.652 Presence of left artificial knee joint; Z79.891 Long term (current) use of opiate analgesic; Z79.82 Long term (current) use of aspirin; Z79.02 Long term (current) use of antithrombotics/antiplatelets; Z79.84 Long term (current) use of oral hypoglycemic drugs; Z79.811 Long term (current) use of aromatase inhibitors; Z79.899 Other long term (current) drug therapy; Z98.890 Other specified postprocedural states; Z79.01 Long term (current) use of anticoagulants; Z87.891 Personal history of nicotine dependence
CPT/HCPCS: 36415; 70450; 70496; 70498; 70551; 80048; 80053; 80069; 82947; 83036; 83735; 83880; 84100; 84443; 84484; 85025; 85610; 85730; 86850; 86900; 86901; 93005; 93010; 93308; 93312; 93321; 93325; 94660; 94762; 96374-59; 96375-59; 96376; 99285-25; A9270; G0378; J0360; J1170; J1885; J2270; J2405; J2704; J3010; J7030; Q9967

== ENCOUNTER 2023-07-20 13:21 | Emergency (ER) | payer OTHER ==
[~2023-07-20] VITALS: Ht 188 cm; Wt 136.1 kg
[~2023-07-20 13:21] MED LIST changes: +Hydroxyzine HCl50 MG; +Norco 10-325 T1 EACH PO; +POTA20PAC
[2023-07-20 13:33] VITALS: BP 162/122
[2023-07-20] MEDS ORDERED: LOSA50 PO (13:46)
== END 2023-07-20 13:46 | disposition home or self-care (01) ==
LOC: ER 13:21
DX: I10 Essential (primary) hypertension (principal); Z79.899 Other long term (current) drug therapy; Z79.82 Long term (current) use of aspirin; Z79.84 Long term (current) use of oral hypoglycemic drugs; I48.91 Unspecified atrial fibrillation; E78.5 Hyperlipidemia, unspecified; Z87.891 Personal history of nicotine dependence; R06.02 Shortness of breath; I27.20 Pulmonary hypertension, unspecified; I08.3 Combined rheumatic disorders of mitral, aortic and tricuspid valves
CPT/HCPCS: 93306; 99283